=== PATIENT | male | born 1935 | race Caucasian/White ===

== ENCOUNTER 2017-01-17 14:43 | Emergency (ER) | payer MEDICARE, OTHER ==
[~2017-01-17 14:43] MED LIST: ALBU8I INH; ASPI81TA11 PO; ATOR40TA49 PO; CYCL5TAB PO; DIFL0.0512 LEFT EYE; PERC5TAB12 PO; TAB-TAB PO; TOPR50TA PO; ZETI10TA5 PO
[2017-01-17 15:03] VITALS: BP 121/61; PULSE 89; RESP 20; TEMP 98.1; O2SAT 97
[2017-01-17 15:12] VITALS: BP_SYST 119; BP_SYST 121; BP_DIAS 50; BP_DIAS 61
[2017-01-17] MEDS ORDERED: SODIUM CHLORIDE 0.9% FLUSH 10 ML FLUSH IVF PRN (15:15)
[2017-01-17] MEDS ORDERED: NITR1SUB3 SL (15:32)
--- NOTE | 2017-01-17 15:41 | PD ---
HPI Chief Complaint: Chest Pain Time Seen by Provider: 15:10 Travel History International Travel<30 days: No Contact w/Intl Traveler<30days: No Traveled to known affect area: No History of Present Illness HPI 81-year-old male with history of metastatic lung cancer on hospice, presents the emergency department via ambulance with of substernal chest pressure which lasted for several minutes at home today. Patient has history of CAD with stents 3 in the past. His been on hospice without active cancer treatment since August of last year. Patient denies fever, chills, nausea, vomiting, or diarrhea. Upon arrival the patient is pain free. Patient has no known drug allergies. 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 DIAGNOSED THIS VISIT) Psychiatric: No Reproductive: No Respiratory: Yes (LUNG CANCER) Migraines: Yes Triglycerides - High: Yes Past Surgical History Abdominal Surgery: No AICD: No Cardiac Surgery: Yes (ANGIOPLASTY WITH STENTS) Coronary Stent: Yes Ear Surgery: No Eye Surgery: Yes (CATARACT: BILATERAL) Genitourinary Surgery: No Gynecologic Surgery: No Joint Replacement: No Oral Surgery: Yes (TONSILS) Pacemaker: No Tonsillectomy: Yes (WITH ADENOIDS) Other Surgery: Yes (PORT TO LEFT CHEST WALL) Social History Alcohol Use: Yes (OCCASIONAL) Tobacco Use: No (QUIT 1991) Substance Use: No Allergies-Medications (Allergen,Severity, Reaction): Coded Allergies: No Known Allergies (Verified , 01/17/17) Reported Meds & Prescriptions Reported Meds & Active Scripts Active Nitroglycerin SL (Nitroglycerin) 0.4 Mg Subl 0.4 Mg SL DIRECTED PRN ONE TABLET UNDER THE TONGUE NEEDED FOR CHEST PAIN, MAY REPEAT EVERY FIVE MINUTES FOR A TOTAL OF 3 DOSES OR CALL 911 IF NO RELIEF Flexeril (Cyclobenzaprine HCl) 5 Mg Tab 5 Mg PO Q8H PRN Percocet 5-325 mg (Oxycodone/Acetaminophen) 1 Tab 1 Tab PO Q4H PRN Ventolin Hfa (Albuterol Sulfate) 8 Gm Aero 1 Puff INH Q4H PRN * SHAKE WELL BEFORE USE * Reported Durezol (Difluprednate) 0.05 % Emu 1 Drop LEFT EYE BID Lipitor 40 Mg Tab (Atorvastatin Calcium) 40 Mg Tab 40 Mg PO HS Multivitamin (Multivitamins) 1 Tab Tab 1 Tab PO DAILY Zetia (Ezetimibe) 10 Mg Tab 10 Mg PO HS Aspirin EC 81 mg (Aspirin) 81 Mg Tab 81 Mg PO DAILY Toprol Xl (Metoprolol Succinate) 50 Mg Tabcr 50 Mg PO DAILY Review of Systems Except as stated in HPI: all other systems reviewed are Neg General / Constitutional: No: Fever Eyes: No: Visual changes HENT: No: Headaches Cardiovascular: No: Chest Pain or Discomfort Respiratory: No: Shortness of Breath Gastrointestinal: No: Abdominal Pain Genitourinary: No: Dysuria Musculoskeletal: No: Pain Skin: No Rash Neurologic: No: Weakness Psychiatric: No: Depression Endocrine: No: Polydipsia Hematologic/Lymphatic: No: Easy Bruising Physical Exam Narrative GENERAL: Patient appears in no acute distress. SKIN: Warm and dry. Normal color. Normal turgor. HEAD: Atraumatic. Normocephalic. EYES: Pupils equal and round. No scleral icterus. No injection or drainage. ENT: No nasal bleeding or discharge. Mucous membranes pink and moist. Pharynx is clear. Airway is patent. NECK: Trachea midline. No JVD. Supple nontender. CARDIOVASCULAR: Regular rate and rhythm. No murmurs gallops or rubs. RESPIRATORY: No accessory muscle use. Clear to auscultation. Breath sounds equal bilaterally. GASTROINTESTINAL: Abdomen soft, non-tender, nondistended. Hepatic and splenic margins not palpable. MUSCULOSKELETAL: Extremities without clubbing, cyanosis, or edema. No obvious deformities. NEUROLOGICAL: Awake and alert. No obvious cranial nerve deficits. Motor grossly within normal limits. Five out of 5 muscle strength in the arms and legs. Normal speech. PSYCHIATRIC: Appropriate mood and affect; insight and judgment normal. Data Data Last Documented VS Vital Signs Date Time Temp Pulse Resp B/P Pulse Ox O2 Delivery O2 Flow Rate FiO2 01/17/17 15:12 121/61 119/50 01/17/17 15:03 98.1 89 20 97 Orders Sodium Chloride 0.9% Flush (Ns Flush) (01/17/17 15:15) [facility] Medical Decision Making Medical Screen Exam Complete: Yes Emergency Medical Condition: Yes Medical Record Reviewed: Yes Differential Diagnosis Possible angina. Cardiac syndrome. Chest pain. Metastatic lung cancer. On hospice. Narrative Course Patient is medically stable and pain-free at time of exam. EKG is performed showing no acute changes compared to previous EKG of 2016. Family arrives and patient is discussed. Due to the patient's long cancer and hospice status aggressive cardiac workup was not felt warranted at this time. She was agreed upon by the patient and the family as well. Patient was discussed with Dr. Mcmillan who sees the patient as well. Patient agrees to be treated symptomatically with sublingual nitroglycerin 0.4 mg as needed for chest pressure prescription was given. Recommend patient take 81 mg aspirin daily unless contraindicated by his primary care physician. Patient should follow-up with his primary care physician and/or international trade specialist as needed. Patient is felt stable to be discharged home, but can return to emergency department today time as warranted. 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 Family arrives and patient is discussed. Due to the patient's long cancer and hospice status aggressive cardiac workup was not felt warranted at this time. She was agreed upon by the patient and the family as well. Patient was discussed with Dr. Mcmillan who sees the patient as well. Patient agrees to be treated symptomatically with sublingual nitroglycerin 0.4 mg as needed for chest pressure prescription was given. Recommend patient take 81 mg aspirin daily unless contraindicated by his primary care physician. Patient should follow-up with his primary care physician and/or international trade specialist as needed. Patient is felt stable to be discharged home, but can return to emergency department today time as warranted. Med/Other Pt SpecificInfo: Prescription(s) given Scripts Nitroglycerin SL 0.4 Mg Subl0.4 Mg SL DIRECTED PRN (CHEST PAIN) #100 TAB.SL Ref 0 ONE TABLET UNDER THE TONGUE NEEDED FOR CHEST PAIN, MAY REPEAT EVERY FIVE MINUTES FOR A TOTAL OF 3 DOSES OR CALL 911 IF NO RELIEF Prov:Sindy Vinson MD 01/17/17 Disposition: 01 DISCHARGE HOME Condition: Stable Rey Clements Jan 17, 2017 15:41
--- NOTE | 2017-01-17 15:42 | PD ---
Data Data Last Documented VS Vital Signs Date Time Temp Pulse Resp B/P Pulse Ox O2 Delivery O2 Flow Rate FiO2 01/17/17 15:12 121/61 119/50 01/17/17 15:03 98.1 89 20 97 Orders Sodium Chloride 0.9% Flush (Ns Flush) (01/17/17 15:15) MDM Supervised Visit with JASON: Yes Narrative Course I, Dr. Vinson, have reviewed the advance practice practioner's documentation and am in agreement, met with the patient face to face, made the diagnosis, and the medical decision making was done by me. *My assessment and Findings: 81-year-old male with history of CAD with previous PCI 2 here with complaint of a brief episode of substernal chest pain. Patient is a poor historian. Unsure whether this is due to underlying dementia or pain medications. Patient is currently on hospice for metastatic lung cancer to brain. He is symptom-free at this time and is twelve-lead EKG is at baseline. Concern for ACS but at a conversation with patient and his family and at this point his goals are primarily comfort oriented and if he did have an IN he would not want a cardiac catheterization or CABG. Given this I find utility and laboratory testing, troponin, etc. not worthwhile. Family was in agreement and patient will be discharged back in hospice care with prescription for nitroglycerin to use as needed if he is having recurrent pain. Scripts Nitroglycerin SL 0.4 Mg Subl0.4 Mg SL DIRECTED PRN (CHEST PAIN) #100 TAB.SL Ref 0 ONE TABLET UNDER THE TONGUE NEEDED FOR CHEST PAIN, MAY REPEAT EVERY FIVE MINUTES FOR A TOTAL OF 3 DOSES OR CALL 911 IF NO RELIEF Prov:Sindy Vinson MD 01/17/17 Sindy Vinson MD Jan 17, 2017 15:42
[2017-01-17] MEDS ORDERED: ASPI1TAB69 PO (15:57)
[2017-01-17] MEDS ORDERED: METO50TA11 PO (15:57)
[2017-01-17] MEDS ORDERED: VALS1TAB64 PO (15:57)
[2017-01-17] MEDS ORDERED: MULTTAB67 PO (15:57)
[2017-01-17] MEDS ORDERED: CITA20TA4 PO (15:57)
[2017-01-17 17:56] VITALS: BP 148/76
--- NOTE | 2017-01-18 11:47 | EKG ---
Date Performed: 01/17/2017 Time Performed: 15:05:53 PTAGE: 81 years EKG: Sinus rhythm WITH FIRST DEGREE AV BLOCK RIGHT BUNDLE BRANCH BLOCK ABNORMAL ECG PREVIOUS TRACING : 06/03/2016 15.50 Compared to prior tracing no significant change DOCTOR: Abhay Espinal Interpretating Date/Time 01/18/2017 11:45:50
== END 2017-01-17 17:57 | disposition home or self-care (01) ==
LOC: NEPE 14:43
DX: R07.9 Chest pain, unspecified (principal); C34.90 Malignant neoplasm of unspecified part of unspecified bronchus or lung; Z79.01 Long term (current) use of anticoagulants; E78.00 Pure hypercholesterolemia, unspecified; I25.10 Atherosclerotic heart disease of native coronary artery without angina pectoris; E11.9 Type 2 diabetes mellitus without complications; I10 Essential (primary) hypertension; R94.31 Abnormal electrocardiogram [ECG] [EKG]
CPT/HCPCS: 93005; 99285